=== PATIENT | female | born 2005 | race Caucasian/White ===

== ENCOUNTER 2025-04-23 06:12 | Outpatient (REF) | payer OTHER, SELFPAY ==
--- NOTE | ~2025-04-23 | US_ITS ---
EXAMINATION: US PELVIS CLINICAL INFORMATION: Check IUD placement COMPARISON: None available. TECHNIQUE: Ultrasound of the pelvis is performed using both transabdominal and transvaginal transducers along with Doppler. Transvaginal imaging is performed due to inadequate visualization transabdominally. FINDINGS: LMP: Prolonged bleeding/spotting 21 days. Uterus is anteverted , measuring 7 x 3.7 x 5.2 cm. No focal uterine lesion. Endometrial thickness: 0.36 cm IUD positioned in the endometrial canal. Right ovary measures 2.5 x 1.4 x 1 cm. Volume 1.9 mL. . Left ovary measures 2.9 x 1.7 x 1.3 cm. Volume 3.4 mL. Follicles in bilateral ovaries. No free fluid in the cul-de-sac. US/US pelvic and transvaginal IMPRESSION: IUD present, appearing appropriately positioned within the endometrial canal. IMPRESSION: 1. IUD positioned in the endometrial canal. 2. Bilateral ovaries appear unremarkable. Electronically signed by: Robbie David MD 04/23/2025 01:55 PM EDT
--- OUTSIDE RECORDS SUMMARY | 2025-04-23 06:14 | XMS_ITS | Encounter Summary ---
Author Organization [facility] Address [address] [place] [address] Phone Care Team Providers Care Machine Set Up Technician Name Role Phone Michelle Maxwell MD Unavailable Cherrie Mcclain MD Unavailable [phone] Leydi Ramos NP Unavailable Michelle Maxwell MD Primary Care Provider + Michelle Maxwell MD Unavailable [phone] Michelle Maxwell MD Primary Care Provider + Michelle Maxwell MD Unavailable [phone] Unknown, Unknown Primary Care Provider Aubrie Merida NP Primary Care Provider [phone] Encounter Details Date Type Department Care Team ([facility] Contact Info) Description 02/12/2020 Telephone [facility], [address] [address] Michelle Maxwell MD [address] [place] [address] [address] [place] [address] [email or web address] Social History Tobacco Use Types Packs/Day Years Used Date Smoking Tobacco: Never Assessed Comments Unknown Sex and Gender Information Value Date Recorded Sex Assigned at Female 08/18/2024 1:15 AM EST Legal Sex Female 5:40 PM EST Gender Identity Female 08/18/2024 1:15 AM EST Sexual Orientation Straight 08/18/2024 3: 36 AM EST documented as of this encounter Plan of Treatment Not on file documented as of this encounter Visit Diagnoses Not on filedocumented in this encounter Care Teams Machine Set Up Technician Relationship Specialty Start Date End Date Michelle Maxwell MD [address] [place] [phone] [email or web address] PCP - General Pediatrics 03/16/17 11/11/20 Michelle Maxwell MD [address] [place] [phone] [email or web address] PCP - General Pediatrics 11/12/20 04/04/24 Unknown, Claudio, PCP - General 04/05/24 04/23/24 Aubrie Gates NP [address] [place] [phone] [email or web address] PCP - General Nurse Practitioner 04/24/24 Michelle Maxwell MD [address] [place] [address] [email or web address] Historical LMR Provider 01/01/17 Cherrie Mcclain MD [address] [place] [phone] Historical LMR Provider 01/01/1707/25 Leydi Ramos, CASANDRA [address] [place] [address] [address] [place] [address] [email or web address] Historical LMR Provider 01/01/17 2 Michelle Maxwell MD [address] [place] [address] [address] [place] [address] [email or web address] Insurance Assigned Provider 01/20/19 09/20/20 Michelle Maxwell MD [address] [place] [address] [address] [place] [address] [email or web address] Insurance Assigned Provider 10/22/23 documented as of this encounter Additional Source Comments The information contained in this document represents components of the legal health record. It is not the complete legal health record.[facility]
--- OUTSIDE RECORDS SUMMARY | 2025-04-23 06:14 | XMS_ITS | Clinical Summary ---
Author Organization [facility] Address [address] [place] [address] Phone Care Team Providers Care Customer Service Analyst Name Role Phone Michelle Maxwell MD Unavailable [phone] Michelle Maxwell MD Unavailable [phone] Aubrie Gates NP Primary Care Provider [phone] Allergies Active Allergy Reactions Criticality Noted Date Comments Azithromycin Feeling Irritable,Insomnia,Lightheadedness,Men lisa Status Change,Other (See Comments) Low 07/27/2023 Medications propranoloL (INDERAL) 10 MG immediate release tabletIndicatio ns:Panic attacks Take 1 tablet (10 mg total) by mouth 2 (two) times a day as needed. 30 tablet 4 Active escitalopram oxalate (LEXAPRO) 20 MG tabletIndicatio ns:Anxiety TAKE 1 TABLET BY MOUTH EVERY DAY 90 tablet 2 5 Active escitalopram oxalate (LEXAPRO) 10 MG tabletIndicatio ns:Anxiety and depression TAKE 1 TABLET BY MOUTH EVERY DAY 90 tablet 2 5 Active mupirocin (BACTROBAN) 2 % ointmentIndicat ions:Laceration of left wrist, initial encounter Apply topically 3 (three) times a day. 22 g 5 Active Active Problems Problem Noted Date Diagnosed Date Anorexia nervosa, restricting type 10/01/2023 Overview (11/28/2023): Therapist: Emmie LYNN Dietitian: Aliza Culver Assessment & Plan (02/28/2024 2:21 PM EDT): Aguilar Platt is a 18 y.o. who presents today for follow-up of: anorexia nervosa The following concerns and recommendations were discussed: Patient remains medically stable for outpatient treatment? Yes TWR? (Target weight range) - At least >140lb based on past growth charts 1) Weight: weight is 156.4 lbs - up from previous visit - BMI 23.38 - Within TWR - Vitals: reviewed and stable 2) Activity recommendations - Goes to the gym about 4x/ week and incorporates rest days when needed. - Reports dizziness while weight lifting and resolves once she rests. Discussed eating meal/ snack before going to the gym, increasing fluids, decreasing reps per set, and increasing breaks - Reports did not go to the gym last week because she was busy with babysitting and too tired to work out. 3) Nutrition recommendations - Reports that she is not interested in meeting with a dietitian at this time. - Continue with 3 meals and 3 snacks. 4) Labs today? - Ordered BMP/mag/phos - Advised to schedule DEXA 5) Treatment recommendations/HLOC? - Recommend that she reach out to medication provider to discuss Lexapro. Aguilar reports taking the medication randomly and not thinking medication is helping. - Discussed medical check ins with student health services while away at school. Aguilar agreed to set up once she gets on campus. - Continue to meet with outpatient therapist 6) Medication changes? - None 7) Mood concerns - Denies - Continue to meet with outpatient therapist 8) Follow-up/coordination with Team - Scheduled follow up for when she returns for [facility] Assessment & Plan (02/01/2024 12:20 PM EDT): Aguilar Platt presents today for follow-up of: anorexia nervosa The following concerns and recommendations were discussed: - She has been doing better overall. - Discussed the transition to college and strongly urged her to set up care at [facility]. Encouraged regular check-ins with student health. Much better to be on top of things before there is a problem. - She stopped creatine and caffeine supplements. Patient remains medically stable for outpatient treatment? Yes TWR? (Target weight range) - At least >140lb based on past growth charts 1) Weight: Has continued to increase; unclear target at this point. Discussed focusing on continued behaviors, adequate nourishment. - Vitals--stable 2) Activity recommendations - Continues to go to gym, but also have rest days 3) Nutrition recommendations - She is no longer following up with nutrition - Continue with 3 meals/3 snacks; feeling better about regular intake 4) Labs today? Advised to schedule DEXA - Reviewed recent normal BMP/mag/phos 5) Treatment recommendations/HLOC? - Continue with therapist 6) Medication changes? On Lexapro 7) Mood concerns--doing well; stable 8) Follow-up/coordination with Team - Follow-up with therapist - Follow-up in a few weeks Assessment & Plan (12/26/2023 10:26 PM EDT): Aguilar Platt presents today for follow-up of: anorexia nervosa The following concerns and recommendations were discussed: - Discussed concerns re: creatinine use, caffeine - Advised stopping creatinine use and caffeine supplements--discussed potential health risks - Concern about addiction tendencies as well--will discuss further with therapist Patient remains medically stable for outpatient treatment? Yes TWR? (Target weight range) - At least >140lb based on past growth charts 1) Weight: ?Likely within a target weight range. Discussed focusing on continued behaviors, adequate nourishment. 2) Activity recommendations - Would keep time at gym to <3x/week 3) Nutrition recommendations - Advised to follow-up with Aliza Culver - Continue focus on 3 meals/3 snacks - She reports not feeling that she is having triggers to binge as much - Having more eating disorder thoughts, but trying to push back 4) Labs today? Advised to schedule DEXA - Would check creatinine and kidney function given creatine use 5) Treatment recommendations/HLOC? - Continue with therapist; continue with dietitian 6) Medication changes? On Lexapro 7) Mood concerns--doing well; stable 8) Follow-up/coordination with Team - Follow-up with therapist/dietitian/PCP - Follow-up in 1 month Assessment & Plan (11/28/2023 10:52 PM EDT): Aguilar Platt presents today for follow-up of: anorexia nervosa The following concerns and recommendations were discussed: - Would continue to limit going to the gym to 3 days/week - She will talk with therapist re: setting more specific goals/behavior changes - Reschedule follow-up with Aliza Culver (dietitian) - Awaiting next period Patient remains medically stable for outpatient treatment? Yes TWR? (Target weight range) - At least >135-140lb based on past growth charts 1) Weight: ?Likely within a target weight range. Discussed focusing on continued behaviors, adequate nourishment. 2) Activity recommendations - Would keep time at gym to <3x/week - Discussed the SEES guidelines as a framework to returning to activity 3) Nutrition recommendations - Advised to follow-up with Aliza Culver - Continue focus on 3 meals/3 snacks; would not yet rely on hunger cues - Discussed that her feeling more out of control with eating ( binges ) is likely a sign her body needs more intake earlier; would continue with frequent meals/snacks - Discussed need for continued nourishment 4) Labs today? None; advised to schedule DEXA - Plan to recheck CBC/iron studies at next visit 5) Treatment recommendations/HLOC? - Continue with therapist; continue with dietitian 6) Medication changes? On Lexapro 7) Mood concerns--doing well; stable 8) Follow-up/coordination with Team - Follow-up with therapist/dietitian/PCP - Follow-up in 1 month Assessment & Plan (10/28/2023 9:23 PM EDT): Aguilar Arciniegaing presents today for follow-up of: anorexia nervosa The following concerns and recommendations were discussed: - Discussed concerns about increased exercise--would advise cutting back - She has connected with a new therapist - Reschedule follow-up with Aliza Culver (dietitian) - Needs weight/vitals with PCP - She got her period again (first time in almost 1 year) Patient remains medically stable for outpatient treatment? Yes TWR? (Target weight range) - I suspect she needs to restore to at least >135- 140lb based on past growth charts 1) Weight: Unknown; needs weight/vitals checked 2) Activity recommendations - As above, advised to cut back on exercise to <30 min a few times a week; would increase more gradually - Discussed the SEES guidelines as a framework to returning to activity 3) Nutrition recommendations - Advised to follow-up with Aliza Culver - Continue focus on 3 meals/3 snacks; would not yet rely on hunger cues - Discussed that her feeling more out of control with eating is likely a sign her body needs more intake earlier; would continue with frequent meals/snacks 4) Labs today? None; advised to schedule DEXA 5) Treatment recommendations/HLOC? - Now has new therapist; continue with dietitian 6) Medication changes? On Lexapro 7) Mood concerns--doing well 8) Follow-up/coordination with Team - Follow-up with therapist/dietitian/PCP - In person visit next month Assessment & Plan (10/02/2023 8:22 AM EDT): Aguilar is a 18 year-old female with a history of anorexia nervosa who presents for an initial medical consult. Today we obtained a lot of information about her history and will obtain other data points to help assess her medical stability. She has made a lot of progress since attending residential treatment at [facility] in July, but her stay was cut short as she developed pneumonia. She is not outpatient and wanting to pursue outpatient treatment and continued weight caodaism. She needs to connect with a dietitian and therapist. We discussed the following concerns and recommendations today: 1) Weight: Weight today is up to 122.5lb (from a low of 108lb before treatment). She understands she needs to continue to weight restore. - Goal of 1-2lb/week of weight gain - Unclear target weight range, but I suspect she needs to restore to at least >135-140lb based on past growth charts 2) Cardiac: She is orthostatic today by pulse. BP is stable. 3) Amenorrhea: Likely due to weight loss and hypothalamic changes. She is at risk for osteopenia and fertility issues. We discussed the importance of weight caodaism. - Will check estradiol, FSH, LH, prolactin, urine HCG 4) Bone health: Given her history of restriction and amenorrhea, I would advise checking a DEXA scan. Exercise while malnourished is not protective. - Obtain a DEXA scan - Check vitamin D 5) GI symptoms: can monitor. If her intake increases she may be at risk for increased constipation and decreased gastric motility--can address as needed. 6) Additional lab evaluation: Will check CMP, mag, phos, thyroid tests, iron studies, celiac screen (already checked before), vitamin B12, CBC. 7) Exercise: She is interested in returning to more activity. We discussed that I would first prioritize increasing nutrition and keeping activity light right now--<30 min/day, low-impact with rest days - Discussed the SEES guidelines as a framework to returning to activity 8) Nutritional intake: Continue to focus on 3 meals/3 snacks - Will refer to Aliza Culver in nutrition 9) Care coordination: - Aguilar is interested in finding an outpatient therapist for eating disorders. Discussed some resources (EDCRP, SHANE, etc.). Will send other outreach options. - Also discussed IOP/PHP options; could consider [facility] (though she thinks she prefers in-person). - We will follow-up in a few weeks. I would continue weight/vitals every 2 weeks either through our office or through her PCP. Mixed obsessional thoughts and acts 08/25/2020 Anxiety 06/02/2020 Resolved Problems Problem Noted Date Diagnosed Date Resolved Date Closed fracture of distal end of radius 05/29/2013 03/11/2021 Overview (09/07/2014): Closed fracture of distal end of radius; Left; closed reduction 05/28/13 Encounters Date Type Department Care Team Description 01/29/2025 2:40 PM EDT Office Visit [facility], [address] [address] Ade Lindsay NP Laceration of left wrist, initial encounter (Primary Dx) 01/23/2025 Refill [facility], [address] [address] Celsa Lake MD Med Change Request from Last 3 Months Immunizations Immunization Administration Dates Next Due COVID-19 (Pre-05/09) Pfizer Vaccine, mRNA, PF 12/27/2020,12/06/2020 DTaP, unspecified formulation 05/10/2007 ,07/24/2004,2003,09/05,2003 Hepatitis B, unspecified formulation 2003, 2003,2003 Hib, unspecified formulation 07/24/2004, 2003,2003,07/01 Influenza Quadrivalent Prese rvative Free IM 08/04/2023,06/30/2020 Influenza, Unspecified Formulation 05/17(Deferred: Patient Decision - , Ordered By: [id number]),05/02/2008,05/10/2007, 6,04/15/2005,05/01/2004 MMR 05/10/2007,05/01/2004 Meningococcal MCV4O 03/31/2015 Meningococcal MCV4P 06/30/2020 PPD Test 08/04/2023 Pneumococcal conjugate, PCV 7 07/24/2004 ,01/30/2004,2003,07/01 Polio, Unspecified Formulation 7,01/30/2004,2003,07/01 Tdap 04/01/2016 Varicella 05/10/2007,07/24/2004 Family History Medical History Relation Comments Asthma Maternal Grandfather asthma Uncoded Family History Maternal Grandfather non hodgkin's lymphoma Asthma Maternal Grandmother asthma Uncoded Family History Mother proctitis with diarrhea/unspecified allergy Relation Status Comments Maternal Grandfather Maternal Grandmother Mother Social History Tobacco Use Types Packs/Day Years Used Date Smoking Tobacco: Never Smokeless Tobacco: Never Education Answer Date Recorded Are you interested in more education? Not on vinh e 11/28/2022 Are you concerned about learning? Not on file 11/28/2022 No 11/28/2022 No 11/28/2022 Digital Access Answer Date Recorded No 12/11/2022 No 12/11/2022 Reliable internet access at home? Not on file 12/11/2022 Device with a working camera? Not on file Intimate Partner Violence Answer Date R ecorded Are you denied basic needs s uch as food, clothing, or medical care? No 08/18/2024 In the past 12 months have y ou been in a relationship with a person who hurts, threatens, or tries to control you? No 08/18/2024 Are you denied basic needs s uch as food, clothing, or medical care? No 08/18/2024 In the past 12 months have y ou been in a relationship with a person who hurts, threatens, or tries to control you? No 08/18/2024 Comments Unknown Sex and Gender Information Value Date Recorded Sex Assigned at Female 08/18/2024 1:15 AM EST Legal Sex Female 5:40 PM EST Gender Identity Female 08/18/2024 1:15 AM EST Sexual Orientation Straight 08/18/2024 3: 36 AM EST Last Filed Vital Signs Vital Sign Reading Time Taken Comments Blood Pressure 124/78 12/07/2024 1:03 PM EDT Pulse 72 12/19/2024 9:49 AM EDT Temperature 36.6 C (97.8 F) 01/29/2025 2:34 PM EDT Respiratory Rate 18 08/18/2024 3:41 AM EST Oxygen Saturation 99% 12/19/2024 9:49 AM EDT Inhaled Oxygen Concentration - - Weight 69.1 kg (152 lb 6.4 oz) 01/29/2025 2:34 P M EDT Height 174.8 cm (5' 8.82 ) 10/05/2024 1:46 PM ED T Body Mass Index 22.62 10/05/2024 1:46 PM EDT Plan of Treatment Health Maintenance Due Date Last Done Comments HPV VACCINES (1 - 3-dose series) 2018 MENINGOCOCCAL VACCINES (B) (1 of 2 - Standard) 2019 HEPATITIS C SCREENING 2021 HIV ONE-TIME SCREENING (18-65 YEARS) 2021 PAP SMEAR 2024 CHLAMYDIA SCREENING 06/07/2024 06/07/2023, 3 INFLUENZA VACCINE (#1) 2025 , 08/04/2023, 06/30/2020, Additional history exists COVID-19 VACCINE ( season) 2025 12/27/2020, 12/06/2020 SMOKING Hx and SMOKELESS TOBACCO SCREENING 11/13/2025 11/13/2024 DEPRESSION SCREENING 12/07/2025 12/07/2024, 09/28/19 23 Adult Td,Tdap Booster 04/01/2026 04/01/2016 COMBINED DTaP,Tdap,Td (7 - Td or Tdap) 04/01/2026 04/01/2016, 05/10/2007, 07/24/2004, Additional history exists HIB VACCINES Completed 07/24/2004, 10/16, 2003, Additional history exists PNEUMOCOCCAL VACCINES (0-49 years) Aged Out 07/24/2004, 01/30/2004, 2003, Additional history exists No longer eligible based on patient's age to complete this topic MMR VACCINES Completed 05/10/2007, 05/01/2004 MENINGOCOCCAL VACCINES (ACWY) Completed 06/30/2020, 03/31/2015 ADOLESCENT UNIVERSAL LIPID SCREENING Completed 08/03/2023, 03/11/2021, 06/30/2020 HEPATITIS A VACCINES Aged Out No long er eligible based on patient's age to complete this topic Medical Devices Not on file Procedures Procedure Name Priority Date/Time Associated Diagnosis Comments LIPID PANEL Routine 08/03/2023 10:15 AM EST Moderate restricting type anorexia nervosa CHLAMYDIA TRACHOMATIS AND NEISSERIA GONORRHOEAE NUCLEIC ACID DETECTION Routine 06/07/2023 3:38 PM EST Weight loss from Last 3 Months or Most Recently Relevant to Health Maintenance Results * Lipid panel (08/03/2023 10:15 AM EST) CHOLESTEROL 199 140 - 200 mg/dL [facility] Comment: Desirable: <200 Borderline: 200-239 High: >239 TRIGLYCERIDES 66 0 - 149 mg/dL [facility] Comment: Normal <150 mg/dL Border-High 150-199 mg/dL High Triglycerides 200-499 mg/dL Very High Triglycerides >=500 mg/dL HDL 62 >40 mg/dL [facility] Comment: Recommendations according to the National Cholesterol Education Program Guidelines: <40 mg/dL: Low (Major risk factor for CHD) >= 60 mg/dL: High (Negative risk factor for CHD) CALCULATED LDL 124 0 - 129 mg/dL [facility] Comment: LDL levels in terms of risk for coronary heart disease: <100 mg/dL: Optimal 100-129 mg/dL: Near or above optimal 130-159 mg/dL: Borderline high 160-189 mg/dL: High >190 mg/dL: Very High NON-HDL CHOLESTEROL 137 mg/dL [facility] CARDIAC RISK RATIO 3.2 0 - 4.4 N [facility] Blood 08/03/2023 10:1 5 AM EST 08/03/2023 2:39 PM EST us Aubrie Gates NP LAB BLOOD ORDERABLES Final Resul t Performing Organization Address City/[facility]/ZIP Co de Phone Number [facility] [address] [place] [address] * Chlamydia Trachomatis and Neisseria Gonorrhoeae Nucleic Acid Detection (06/07/2023 3:38 PM EST) Specimen Type URINE [facility] C.TRACHOMATIS, AMP Negative Negative [facility] N.Gonorrhoeae, AMP Negative Negative [facility] Urine 06/07/2023 3:38 PM EST 06/07/2023 9:12 PM EST us Aubrie Gates NP NON CULTURE MICROBIOLOGY Final R esult Performing Organization Address City/[facility]/RUST Co de Phone Number [facility] [address] [place] [address] from Last 3 Months or Most Recently Relevant to Health Maintenance Insurance [facility] POS EPO O POS EPO O POS EPO POS EPO O POS EPO O POS EPO [facility] [employer] Care Teams Customer Service Analyst Relationship Specialty Start Date End Date Aubrie Gates NP [address] [place] [phone] PCP - General Nurse Practitioner 04/24/24 Michelle Maxwell MD [address] [place] [id number] [email or web address] LMR Provider 01/01/17 Michelle Maxwell MD [address] [place] [id number] [email or web address] Insurance Assigned Provider 10/22/23 Additional Source Comments The information contained in this document represents components of the legal health record. It is not the complete legal health record.[facility]
--- OUTSIDE RECORDS SUMMARY | 2025-04-23 06:14 | XMS_ITS | Encounter Summary ---
Author Organization [facility] Address [address] [place] [address] Phone Care Team Providers Care Merchandise Worker Name Role Phone Michelle Maxwell MD Unavailable [phone] Michelle Maxwell MD Primary Care Provider + Michelle Maxwell MD Unavailable [phone] Unknown, Unknown Primary Care Provider Aubrie Merida NP Primary Care Provider [phone] Encounter Details Date Type Department Care Team (Late st Contact Info) Description 09/27/2022 Transcribe Orders [facility] LAB SPECIMEN [address] [place] [address] Ben Guerra MD [address] [place] [id number] [email or web address] Social History Tobacco Use Types Packs/Day Years Used Date Smoking Tobacco: Never Smokeless Tobacco: Never Comments Unknown Sex and Gender Information Value Date Recorded Sex Assigned at Female 08/18/2024 1:15 AM EST Legal Sex Female 5:40 PM EST Gender Identity Female 08/18/2024 1:15 AM EST Sexual Orientation Straight 08/18/2024 3: 36 AM EST documented as of this encounter Plan of Treatment Not on file documented as of this encounter Visit Diagnoses Not on filedocumented in this encounter Additional Health Concerns Assessment Noted Time PHQ-9 Depression Total Score: 8 09/28/19 23 1:04 PM EDT PHQ-2 Depression Total Score: 2 09/28/19 23 1:04 PM EDT documented as of this encounter Care Teams Merchandise Worker Relationship Specialty Start Date End Date Michelle Maxwell MD [address] [place] [address] [email or web address] PCP - General Pediatrics 11/12/20 04/04/24 Unknown, Unknown, MD PCP - General 04/05/24 04/23/24 Aubrie Gates NP [address] [facility] [place] [address] PCP - General Nurse Practitioner 04/24/24 Michelle Maxwell MD 65 [facility] [address]. [address] [place] [address] [email or web address] Historical LMR Provider 01/01/17 Michelle Maxwell MD [address] [facility]. [address] [place] [address] [email or web address] Insurance Assigned Provider 10/22/23 documented as of this encounter Additional Source Comments The information contained in this document represents components of the legal health record. It is not the complete legal health record.[facility]
--- OUTSIDE RECORDS SUMMARY | 2025-04-23 06:14 | XMS_ITS | Encounter Summary ---
Author Organization [facility] Address [address] [place] [address] Phone Care Team Providers Care Activity Leader Name Role Phone Michelle Maxwell MD Unavailable [phone] Michelle Maxwell MD Primary Care Provider + Michelle Maxwell MD Unavailable [phone] Unknown, Unknown Primary Care Provider Aubrie Merida NP Primary Care Provider [phone] Encounter Details Date Type Department Care Team (Late st Contact Info) Description 09/06/2023 Transcribe Orders [facility] LAB SPECIMEN [address] [place] [address] Celsa Lake MD [address] [place] [address] [email or web address] Social History Tobacco Use Types Packs/Day Years [...] with a working camera? Not on file Comments Unknown Sex and Gender Information Value [...] Time PHQ-9 Depression Total Score: 8 09/28/19 1:04 PM EDT PHQ-2 Depression Total Score: 2 09/28/19 1:04 PM EDT documented as of this encounter Care Teams Activity Leader Relationship Specialty Start Date End Date Michelle Maxwell MD [address] [place] [address] [email or web address] PCP - General Pediatrics 11/12/20 04/04/24 Unknown, Unknown, PCP - General 04/05/24 04/23/24 Aubrie Gates NP [address] [place] [address] PCP - General Nurse Practitioner 04/24/24 Michelle Maxwell MD [address] [place] [address] [email or web address] Historical LMR Provider 01/01/17 Michelle Maxwell MD [address] [place] [address] [email or web address] Insurance Assigned Provider 10/22/23 documented as of this encounter Additional Source Comments The information contained in this document represents components of the legal health record. It is not the complete legal health record.[facility]
--- OUTSIDE RECORDS SUMMARY | 2025-04-23 06:14 | XMS_ITS | Encounter Summary ---
Author Organization [facility] Address [address] [place] [address] Phone Care Team Providers Care Financial Sales Manager Name Role Phone Michelle Maxwell MD Unavailable Cherrie Mcclain MD Unavailable [phone] Leydi Ramos NP Unavailable Michelle Maxwell MD Primary Care Provider + Michelle Maxwell MD Unavailable [phone] Michelle Maxwell MD Primary Care Provider + Michelle Maxwell MD Unavailable [phone] Unknown, Unknown Primary Care Provider Aubrie Merida NP Primary Care Provider [phone] Encounter Details Date Type Department Care Team (Late st Contact Info) Description 09/02/2017 Transcribe Orders [facility] LAB SPECIMEN [address] [place] [address] Ervin Herron MD [address] [place] [address] Social History Tobacco Use Types Packs/Day Years [...] on filedocumented in this encounter Care Teams Financial Sales Manager Relationship Specialty Start Date End Date Michelle Maxwell MD [address] [place] [address] [email or web address] PCP - General Pediatrics 03/16/17 11/11/20 Michelle Maxwell MD [address] [place] [address] [email or web address] PCP - General Pediatrics 11/12/20 04/04/24 Unknown, Claudio, PCP - General 04/05/24 04/23/24 Aubrie Gates NP [address] [place] [address] [email or web address] PCP - General Nurse Practitioner 04/24/24 Michelle Maxwell MD [address] [place] [address] [email or web address] Historical LMR Provider 01/01/17 Cherrie Mcclain MD [address] [place] [phone] [email or web address] Historical LMR Provider 01/01/1707/25 Leydi Ramos NP [address] [place] [address] [email or web address] Historical LMR Provider 01/01/17 2 Michelle Maxwell MD [address] [place] [address] [email or web address] Insurance Assigned Provider 01/20/19 09/20/20 Michelle Maxwell MD [address] [place] [address] [email or web address] Insurance Assigned Provider 10/22/23 documented as of this encounter Additional Source Comments The information contained in this document represents components of the legal health record. It is not the complete legal health record.[facility]
--- OUTSIDE RECORDS SUMMARY | 2025-04-23 06:14 | XMS_ITS | Encounter Summary ---
Author Organization [facility] Address [address] [place] [address] Phone Care Team Providers Care Diesel Tractor Engine Mechanic Name Role Phone Michelle Maxwell MD Unavailable Michelle Maxwell MD Unavailable Aubrie Gates NP Primary Care Provider [phone] Encounter Details Date Type Department Care Team (Late st Contact Info) Description 12/19/2024 Transcribe Orders [facility] LAB SPECIMEN [address] [place], [place] [id number] Ade Lindsay NP [address] [place] [address] [email or web address] Social History Tobacco Use Types Packs/Day [...] documented as of this encounter Care Teams Diesel Tractor Engine Mechanic Relationship Specialty Start Date End Date Aubrie Gates NP [address] [place] [address] PCP - General Nurse Practitioner 04/24/24 Michelle Maxwell MD [address] [place] [address] [email or web address] Historical LMR Provider 01/01/17 Michelle Maxwell MD [address] [place] [address] [email or web address] Insurance Assigned Provider 10/22/23 documented as of this encounter Additional Source Comments The information contained in this document represents components of the legal health record. It is not the complete legal health record.[facility]
--- OUTSIDE RECORDS SUMMARY | 2025-04-23 06:14 | XMS_ITS | Encounter Summary ---
Author Organization [facility] Address [address] [place] [address] Phone Care Team Providers Care Industrial Chemistry Teacher Name Role Phone Michelle Maxwell MD Unavailable [phone] Michelle Maxwell MD Primary Care Provider + Michelle Maxwell MD Unavailable [phone] Unknown, Unknown Primary Care Provider Aubrie Merida NP Primary Care Provider [phone] Encounter Details Date Type Department Care Team ([facility] st Contact Info) Description 09/09/2023 Telephone [facility] Pediatrics, [address] [facility] [address] [place] [address] Michelle Maxwell MD [address] [facility]. [address] [place] [address] [email or web address] Social History [...] documented as of this encounter Care Teams Industrial Chemistry Teacher Relationship Specialty Start Date End Date Michelle Maxwell MD [address] [place] [address] [email or web address] PCP - General Pediatrics 11/12/20 04/04/24 Unknown, Unknown, MD PCP - General 04/05/24 04/23/24 Aubrie Gates NP [address] [place] [address] PCP - General Nurse Practitioner 04/24/24 Michelle Maxwell MD [address] [place] [address] [email or web address] Historical LMR Provider 01/01/17 Michelle Maxwell MD [address] [facility] [place] [address] [email or web address] Insurance Assigned Provider 10/22/23 documented as of this encounter Additional Source Comments The information contained in this document represents components of the legal health record. It is not the complete legal health record.[facility]
--- OUTSIDE RECORDS SUMMARY | 2025-04-23 06:14 | XMS_ITS | Encounter Summary ---
Author Organization [facility] Address [address] [place] [address] Phone Care Team Providers Care Security Controls Assessor Name Role Phone Michelle Maxwell MD Unavailable [phone] Michelle Maxwell MD Primary Care Provider + Michelle Maxwell MD Unavailable [phone] Unknown, Unknown Primary Care Provider Aubrie Merida NP Primary Care Provider [phone] Encounter Details Date Type Department Care Team (Late st Contact Info) Description 06/07/2023 Transcribe Orders [facility] LAB SPECIMEN [address] [place] [address] Aurbie Gates NP [address] [place] [address] [email or web address] Social History Tobacco Use Types Packs/Day Years [...] documented as of this encounter Care Teams Security Controls Assessor Relationship Specialty Start Date End Date Michelle Maxwell MD [address] [place] [address] [email or web address] PCP - General Pediatrics 11/12/20 04/04/24 Unknown, Unknown, MD PCP - General 04/05/24 04/23/24 Aubrie Gates NP [address] [place] [address] PCP - General Nurse Practitioner 04/24/24 Michelle Maxwell MD [address] [place] [address] [email or web address] Historical LMR Provider 01/01/17 Michelle Maxwell MD [address] [place] [address] [email or web address] Insurance Assigned Provider 10/22/23 documented as of this encounter Additional Source Comments The information contained in this document represents components of the legal health record. It is not the complete legal health record.[facility]
--- OUTSIDE RECORDS SUMMARY | 2025-04-23 06:14 | XMS_ITS | Encounter Summary ---
Author Organization [facility] Address [address] [place] [address] Phone Care Team Providers Care Call Center Nurse Name Role Phone Michelle Maxwell MD Unavailable [phone] Michelle Maxwell MD Primary Care Provider + Michelle Maxwell MD Unavailable [phone] Unknown, Unknown Primary Care Provider Aubrie Merida NP Primary Care Provider [phone] Encounter Details Date Type Department Care Team (Late st Contact Info) Description 12/01/2023 Transcribe Orders [facility] LAB SPECIMEN [address] [place] [address] Aubrie Gates NP [address] [place] [address] [email or web address] Social History Tobacco Use Types Packs/Day Years [...] documented as of this encounter Care Teams Call Center Nurse Relationship Specialty Start Date End Date Michelle Maxwell MD [address] [place] [address] [email or web address] PCP - General Pediatrics 11/12/20 04/04/24 Unknown, Unknown, MD PCP - General 04/05/24 04/23/24 Aubrie Gates NP [address] [place] [address] PCP - General Nurse Practitioner 04/24/24 Michelle Maxwell MD [address] [place] [address] [email or web address] Historical LMR Provider 01/01/17 Michelle Maxwell MD [address] [place] [address] [email or web address] Insurance Assigned Provider 10/22/23 documented as of this encounter Additional Source Comments The information contained in this document represents components of the legal health record. It is not the complete legal health record.[facility]
--- OUTSIDE RECORDS SUMMARY | 2025-04-23 06:14 | XMS_ITS | Encounter Summary ---
Author Organization [facility] Address [address] [place] [address] Phone Care Team Providers Care Mail Examiner Name Role Phone Michelle Maxwell MD Unavailable [phone] Michelle Maxwell MD Primary Care Provider + Michelle Maxwell MD Unavailable [phone] Unknown, Unknown Primary Care Provider Aubrie Merida NP Primary Care Provider [phone] Encounter Details Date Type Department Care Team (Late st Contact Info) Description 08/03/2023 Transcribe Orders [facility] LAB SPECIMEN [address] [place] [address] Aubrie Gates NP [address] [place] [address] [email or web address] Social History Tobacco Use Types Packs/Day Years [...] documented as of this encounter Care Teams Mail Examiner Relationship Specialty Start Date End Date Michelle Maxwell MD [address] [employer] [place] [address] [email or web address] PCP - General Pediatrics 11/12/20 04/04/24 Unknown, Unknown, MD PCP - General 04/05/24 04/23/24 Aubrie Gates NP [address] [employer] [place] [address] PCP - General Nurse Practitioner 04/24/24 Michelle Maxwell MD [address] [employer] [place] [address] [email or web address] Historical LMR Provider 01/01/17 Michelle Maxwell MD [address] [place] [address] [email or web address] Insurance Assigned Provider 10/22/23 documented as of this encounter Additional Source Comments The information contained in this document represents components of the legal health record. It is not the complete legal health record.[facility]"
== END 2025-04-23 06:13 | disposition home or self-care (01) ==
LOC: HO.UMASIMG 06:12
PROVIDERS: Visit Provider Nurse Practitioner Women's Health
DX: Z30.431 Encounter for routine checking of intrauterine contraceptive device (principal)
CPT/HCPCS: 76830; 76856

== ENCOUNTER → 2025-04-23 13:03 | Outpatient (BNV) | payer OTHER, SELFPAY | PROVIDERS: Visit Provider Radiology Diagnostic Ultrasound | DX: N92.1 Excessive and frequent menstruation with irregular cycle (principal); Z30.431 Encounter for routine checking of intrauterine contraceptive device | CPT/HCPCS: 76830; 76856 ==